=== PATIENT | female | born 1995 | race African-American/Black ===

== ENCOUNTER 2022-03-20 10:41 | Emergency (ER) | payer MEDICAID, OTHER ==
[~2022-03-20] VITALS: Ht 172.7 cm; Wt 100.0 kg
[2022-03-20 11:49] LABS: BASOPHILS % 0.7 % (0.0-2.0); HEMOGLOBIN. 12.9 g/dL (12.0-16.0); MEAN CORPUSCULAR HEMOGLOBIN 30.2 pg (28.0-32.0); MEAN PLATELET VOLUME 8.2 fl (7.4-10.4); MONOCYTES % 10.3 % (2.0-8.0); PLATELET 240 x1000/uL (130-400); RED BLOOD CELL COUNT 4.28 mill/uL (4.2-5.4); RED CELL DISTRIBUTION WIDTH 14.1 % (11.6-14.6)
[2022-03-20 11:59] LABS: CHLORIDE 110 mEq/L (98-107)
[2022-03-20 12:06] LABS: ETHANOL BLOOD < 10 mg/dL
[2022-03-20 12:07] LABS: HCG SCREEN NEGATIVE
[2022-03-20 12:10] LABS: CLARITY URINE CLEAR (CLEAR); COLOR URINE YELLOW (YELLOW); KETONES URINE NEGATIVE (NEGATIVE); LEUKOCYTE ESTERASE URINE NEGATIVE (NEGATIVE); NITRITE URINE NEGATIVE (NEGATIVE); OCCULT BLOOD URINE NEGATIVE (NEGATIVE); PROTEIN URINE NEGATIVE (NEGATIVE); UROBILINOGEN URINE 0.2 E.U./dL (0.2-1.0)
[2022-03-20] MEDS ORDERED: KETOROLAC 60MG/2ML VIAL IM ONE (12:30)
[2022-03-20 12:38] VITALS: BP 128/81
[2022-03-20 12:40] LABS: *AMPHETAMINES SCREEN URINE NEGATIVE (NEGATIVE); *BARBITURATES SCREEN URINE NEGATIVE (NEGATIVE); *BENZODIAZEPINES SCREEN URINE NEGATIVE (NEGATIVE); *COCAINE SCREEN URINE NEGATIVE (NEGATIVE); METHADONE URINE SCREEN NEGATIVE (NEGATIVE); OPIATES URINE SCREEN NEGATIVE (NEGATIVE); PHENCYCLIDINE URINE SCREEN NEGATIVE (NEGATIVE)
[2022-03-20 13:08] LABS: CANNABINOID URINE SCREEN PRESUMTIVE POSITIVE (NEGATIVE)
== END 2022-03-20 13:02 | disposition home or self-care (01) ==
LOC: ER 10:41
DX: R10.9 Unspecified abdominal pain (principal); M54.50 Low back pain, unspecified; R11.10 Vomiting, unspecified; R03.0 Elevated blood-pressure reading, without diagnosis of hypertension
CPT/HCPCS: 36415; 80053; 80305; 80320; 81003; 81025; 84703; 85025; 99283; G0480

== ENCOUNTER 2023-07-31 15:47 | Emergency (ER) | payer MEDICAID, OTHER ==
[~2023-07-31] VITALS: Ht 177.8 cm; Wt 109.0 kg
[2023-07-31 15:56] VITALS: BP 139/78; PULSE 83; RESP 16; TEMP 98.2; O2SAT 100
== END 2023-07-31 17:21 | disposition left against medical advice (07) ==
LOC: ER 15:47
DX: R07.89 Other chest pain (principal); R19.7 Diarrhea, unspecified; Z53.21 Procedure and treatment not carried out due to patient leaving prior to being seen by health care provider
CPT/HCPCS: 99281

== ENCOUNTER 2023-12-24 08:38 | Emergency (ER) | payer MEDICAID ==
[~2023-12-24] VITALS: Ht 180.3 cm; Wt 131.0 kg
[2023-12-24 08:42] VITALS: O2SAT 99
[2023-12-24] MEDS ORDERED: CLOT15CR27 TP (09:57)
[2023-12-24] MEDS ORDERED: DIPH103G TP (09:57)
[2023-12-24 10:00] VITALS: BP 135/78; PULSE 79; RESP 16; TEMP 98.9
== END 2023-12-24 10:22 | disposition home or self-care (01) ==
LOC: ER 08:38
DX: R21 Rash and other nonspecific skin eruption (principal)
CPT/HCPCS: 81025; 99282